=== PATIENT | male | born 1985 | race Caucasian/White ===

== ENCOUNTER 2024-01-15 01:48 | Emergency (ER) | payer OTHER ==
[~2024-01-15] VITALS: Ht 190.5 cm; Wt 75.0 kg
[2024-01-15 02:44] LABS: Basophils # (auto) 0 10 ^3/uL (0-0.2); Basophils % (auto) 0.4 % (0.0-2.0); Eosinophils # (auto) 0 10 ^3/uL (0-0.8); Eosinophils % (auto) 0.1 % (0.0-7.0); Hematocrit 46.7 % (41.0-53.0); Hemoglobin 16.4 g/dL (13.5-17.5); Lymphocytes # (auto) 1.7 10 ^3/uL (0.4-5.4); Lymphocytes % (auto) 13.5 % (10.0-50.0); Mean Corpuscular Hemoglobin 31.5 pg (28.0-32.0); Mean Corpuscular Volume 90.1 fL (80.0-100.0); Monocytes # (auto) 1.3 10 ^3/uL (0-1.3); Monocytes % (auto) 9.9 % (0.0-12.0); Neutrophils # (auto) 9.7 10 ^3/uL (1.6-8.6); Neutrophils % (auto) 76.1 % (37.0-80.0); Nucleated Red Blood Cells % 0.1 %; Platelet Count (auto) 266 10^3/uL (140-450); Red Blood Cells 5.19 10^6/uL (4.5-5.90); Red Cell Distribution Width 12.9 % (11.8-14.3); White Blood Cell 12.8 10^3/uL (4.4-10.8)
[2024-01-15 03:02] LABS: Alanine Aminotransferase 26 U/L (7-40); Alkaline Phosphatase 62 U/L (46-116); Anion Gap 7 (5-15); Aspartate Aminotransferase 34 U/L (13-40); BUN/Creatinine Ratio 8.6 (10.0-20.0); Blood Urea Nitrogen 11 mg/dL (9-23); Calcium 9.8 mg/dL (8.7-10.4); Carbon Dioxide 26 mmol/L (20-30); Chloride 106 mmol/L (98-107); Glucose 145 mg/dL (74-106); Potassium 3.3 mmol/L (3.5-5.1); Sodium 139 mmol/L (136-145)
[2024-01-15 03:03] LABS: Acetaminophen < 2.0 UG/ML (10.0-20.0); Salicylate < 3.0 mg/dL (2.8-20.0); Total Protein 7.9 g/dL (5.7-8.2)
[2024-01-15 03:13] LABS: Blood Alcohol < 3.0 mg/dL (<10)
[2024-01-15] MEDS: POTASSIUM EFFERVESENT TAB 25 MEQ GT ONE (04:03)
[2024-01-15 07:06] LABS: Amphetamine Screen, Urine Neg (NEGATIVE); Barbiturate Scree,Urine Neg (NEGATIVE); Benzodiazephine Screen, Urine Neg (NEGATIVE); Cocaine Screen, Urine Neg (NEGATIVE); Opiate Scree,Urine Neg (NEGATIVE); Phencyclidine Screen, Urine Neg (NEGATIVE)
[2024-01-15 07:07] LABS: Cannabinoid Screen, Urine Pos (NEGATIVE)
[2024-01-15 08:40] VITALS: PULSE 74; RESP 16; O2SAT 96
[2024-01-15] MEDS: OLANZapine 5 MG TAB PO ONE (10:00)
[2024-01-15] MEDS: LORazepam 0.5 MG TAB PO ONE (15:53)
[2024-01-15] MEDS: NEOMYCIN-BACITRACIN-POLYM UNITDOSE PKG TOP OINT TOP ONE (17:44)
[2024-01-16] MEDS: OLANZapine 5 MG TAB PO ONE (10:19)
[2024-01-16] MEDS: LORazepam 0.5 MG TAB PO ONE ×2 (10:19)
[2024-01-16 11:45] VITALS: TEMP 98.2
[2024-01-16 21:10] VITALS: BP 141/83; PULSE 74; RESP 18; O2SAT 100
[2024-01-16] MEDS ORDERED: OLANZapine 5 MG TAB PO SCH (22:00)
== END 2024-01-16 21:26 | disposition short-term general hospital (02) ==
LOC: ER 01:48 → EDBD 01:48 → ER 01-16 21:10
DX: S91.312A Laceration without foreign body, left foot, initial encounter (principal); Z79.899 Other long term (current) drug therapy; Y08.89XA Assault by other specified means, initial encounter; Y93.89 Activity, other specified; Y92.89 Other specified places as the place of occurrence of the external cause; Y99.8 Other external cause status
CPT/HCPCS: 36415; 80053; 80307; 80320; 80329; 85025

== ENCOUNTER 2024-11-12 04:21 | Emergency (ER) | payer OTHER ==
[~2024-11-12] VITALS: Ht 172.7 cm; Wt 100.0 kg
--- NOTE | 2024-11-12 04:47 | ED.PDOC ---
History of Present Illness HPI Comments 39 y/o M presents with anxiety, palpitations, and inability to sleep following methamphetamine use. No additional illicit substance use endorsed. Denies any chest pain, shortness of breath, nausea, vomiting, or further associated symptoms. Chief Complaint: Detox Clearance Time Seen by MD: 04:40 Reviewed Notes: Nurses Notes, Medications, Allergies Allergies: Coded Allergies: NO KNOWN ALLERGIES (Unverified , 01/15/24) Information Source: Patient Mode of Arrival: Ambulatory Severity: Moderate Timing: Hours Duration: Since onset Prehospital treatment: None Past Medical History PAST MEDICAL HISTORY: Denies Surgical History: Denies all surgeries Family History Family History: Reviewed,noncontributory to illness Social History Smoker: Non-Smoker Alcohol: Denies ETOH Use Drugs: Methamphetamine Lives In: Homeless All Other Systems: Reviewed and Negative (As per HPI) Physical Exam General Appearance: Mild Distress, Normal HEENT: Normal ENT Inspection, Pharynx Normal, TMs Normal Neck: Full Range of Motion, Non-Tender, Normal, Normal Inspection Respiratory: Chest Non-Tender, Lungs Clear, No Accessory Muscle Use, No Respiratory Distress, Normal Breath Sounds Cardiovascular: No Edema, No JVD, No Murmur, No Gallop, Normal Peripheral Pulses, Regular Rate/Rhythm Breast Exam: Deferred Gastrointestinal: No Organomegaly, Non Tender, No Pulsatile Mass, Normal Bowel Sounds, Soft Genitalia: Deferred Pelvic: Deferred Rectal: Deferred Extremities: No calf tenderness, Normal capillary refill, Normal inspection, Normal range of motion, Non-tender, No pedal edema Musculoskeletal : Apperance: Normal Neurologic: Alert, general ii farmworker II-XII nml as Tested, No Motor Deficits, No Sensory Deficits, Other (Anxious affect ) Cerebellar Function: Normal Reflexes: Normal Skin: Dry, Normal Color, Warm Lymphatic: No Adenopathy Was a procedure done? Was a procedure done?: No Differential Dx Considerations may include: substance abuse/withdrawal/dependency, anxiety, among others X-Ray, Labs, Meds, VS Vital Signs Date Time Temp Pulse Resp B/P (MAP) Pulse Ox O2 Delivery O2 Flow Rate FiO2 11/12/24 05:22 76 20 138/76 (96) 98 11/12/24 04:28 98.1 69 18 145/80 (101) 96 98.1 Lab Test 11/12/24 05:50 Range/Units White Blood Count 10.8 4.4-10.8 10^3/uL Red Blood Count 5.08 4.5-5.90 10^6/uL Hemoglobin 15.8 13.5-17.5 g/dL Hematocrit 44.8 41.0-53.0 % Mean Corpuscular Volume 88.2 80.0-100.0 fL Mean Corpuscular Hemoglobin 31.0 28.0-32.0 pg Mean Corpuscular Hemoglobin Concent 35.2 32.0-36.0 g/dL Red Cell Distribution Width 13.2 11.8-14.3 % Platelet Count 255 140-450 10^3/uL Mean Platelet Volume 8.4 6.9-10.8 fL Neutrophils (%) (Auto) 77.2 37.0-80.0 % Lymphocytes (%) (Auto) 14.9 10.0-50.0 % Monocytes (%) (Auto) 7.4 0.0-12.0 % Eosinophils (%) (Auto) 0.2 0.0-7.0 % Basophils (%) (Auto) 0.3 0.0-2.0 % Neutrophils # (Auto) 8.3 1.6-8.6 10 ^3/uL Lymphocytes # (Auto) 1.6 0.4-5.4 10 ^3/uL Monocytes # (Auto) 0.8 0-1.3 10 ^3/uL Eosinophils # (Auto) 0 0-0.8 10 ^3/uL Basophils # (Auto) 0 0-0.2 10 ^3/uL Nucleated Red Blood Cells 0.0 % Sodium Level 141 136-145 mmol/L Potassium Level 3.2 L 3.5-5.1 mmol/L Chloride Level 108 H 98-107 mmol/L Carbon Dioxide Level 20 20-31 mmol/L Anion Gap 13 5-15 Blood Urea Nitrogen < 5 L 9-23 mg/dL Creatinine 0.99 0.700-1.30 mg/dL Glomerular Filtration Rate Calc 99 >90 mL/min BUN/Creatinine Ratio 5.1 L 10.0-20.0 Serum Glucose 132 H 74-106 mg/dL Calcium Level 10.2 8.7-10.4 mg/dL Creatine Kinase 597 H 46-171 U/L Current Medications Medications (Trade) Dose Ordered Sig/Allison Route Start Time Stop Time Status Last Admin Sodium Chloride 1,000 ml @ 1,000 mls/hr Q1H ONCE IVB 11/12/24 04:45 11/12/24 05:44 DC 11/12/24 05:30 Lorazepam (Ativan Inj) 1 mg ONCE ONCE IV 11/12/24 04:45 11/12/24 04:46 DC 11/12/24 05:30 Time of 1ST Reevaluation: 05:10 Reevaluation 1ST: Unchanged Time of 2ND Reevaluation: 06:47 Reevaluation 2ND: Improved Patient Education/Counseling: Diagnosis, Treatment, Prognosis, Need For Follow Up, Other (ED observation ) Family Education/Counseling: No Family Present Departure 1 Departure Time of Disposition: 06:48 Impression: Primary Impression: Substance abuse Additional Impression: Hypokalemia Disposition: 01 HOME / SELF CARE / HOMELESS Condition: Good Discharged With: Self Critical Care Note Critical Care Time?: No Stability Stability form required: No Heart Score Heart Score: Heart Score Response (Comments) Value History N/A 0 EKG N/A 0 Age N/A 0 Risk Factors N/A 0 Troponin N/A 0 Total 0 I personally scribed for LEATHA RIVERA MD ([email or web address]) on 11/12/24 at 04:47. Electronically submitted by Asad Harmon ([email or web address]). LEATHA RIVERA MD Nov 12, 2024 04:47 TERESSA RILEY MD Nov 12, 2024 06:49
[2024-11-12 05:22] VITALS: BP 138/76; PULSE 76; RESP 20; TEMP 98; O2SAT 98
[2024-11-12] MEDS: SODIUM CHLORIDE 0.9% 1,000 ML IVB ONE (05:30)
[2024-11-12] MEDS: LORazepam 2MG/ML-1ML VIAL IV ONE (05:30)
[2024-11-12 05:57] LABS: Basophils # (auto) 0 10 ^3/uL (0-0.2); Basophils % (auto) 0.3 % (0.0-2.0); Eosinophils # (auto) 0 10 ^3/uL (0-0.8); Eosinophils % (auto) 0.2 % (0.0-7.0); Hematocrit 44.8 % (41.0-53.0); Hemoglobin 15.8 g/dL (13.5-17.5); Lymphocytes # (auto) 1.6 10 ^3/uL (0.4-5.4); Lymphocytes % (auto) 14.9 % (10.0-50.0); Mean Corpuscular Hgb Conc. 35.2 g/dL (32.0-36.0); Mean Corpuscular Volume 88.2 fL (80.0-100.0); Monocytes # (auto) 0.8 10 ^3/uL (0-1.3); Monocytes % (auto) 7.4 % (0.0-12.0); Neutrophils # (auto) 8.3 10 ^3/uL (1.6-8.6); Neutrophils % (auto) 77.2 % (37.0-80.0); Platelet Count (auto) 255 10^3/uL (140-450); Red Blood Cells 5.08 10^6/uL (4.5-5.90); Red Cell Distribution Width 13.2 % (11.8-14.3); White Blood Cell 10.8 10^3/uL (4.4-10.8)
[2024-11-12 06:12] LABS: Sodium 141 mmol/L (136-145)
[2024-11-12 06:13] LABS: Anion Gap 13 (5-15); Calcium 10.2 mg/dL (8.7-10.4)
[2024-11-12 06:19] LABS: BUN/Creatinine Ratio 5.1 (10.0-20.0); Blood Urea Nitrogen < 5 mg/dL (9-23); Carbon Dioxide 20 mmol/L (20-31); Chloride 108 mmol/L (98-107); Glucose 132 mg/dL (74-106); Potassium 3.2 mmol/L (3.5-5.1)
[2024-11-12 06:21] LABS: Creatine Kinase IFCC 597 U/L (46-171)
[2024-11-12] MEDS: POTASSIUM CHL 20 Meq TABLET PO ONE (06:57)
== END 2024-11-12 07:06 | disposition home or self-care (01) ==
LOC: ER 04:21
DX: F15.90 Other stimulant use, unspecified, uncomplicated (principal); E87.6 Hypokalemia
CPT/HCPCS: 36415; 80048; 82550; 85025; 96361; 96374; 99283; J2060; J7030